=== PATIENT | male | born 1985 | race African-American/Black ===

== ENCOUNTER 2021-09-23 22:37 | Emergency (ER) | payer MEDICAID ==
[~2021-09-23] VITALS: Ht 177.8 cm; Wt 89.4 kg
[2021-09-23 23:07] VITALS: BP 129/83
--- NOTE | 2021-09-23 23:15 | NUR ---
patient to [facility] ambulatory
--- NOTE | 2021-09-24 01:25 | NUR ---
PT TAKEN TO XRAY
--- NOTE | 2021-09-24 01:38 | NUR ---
PT AMBULATED TO BED 1
[2021-09-24] MEDS ORDERED: SULFAMETH/TRIMETH DS 800/160MG 1 TAB PO ONE (01:55)
[2021-09-24] MEDS ORDERED: SULF-58 PO (02:07)
[2021-09-24] MEDS ORDERED: SULF-59 PO (02:07)
[2021-09-24 02:12] VITALS: BP 132/72
--- NOTE | 2021-09-24 02:15 | NUR ---
PATIENT DC HOME FEELING WELL VITALS SIGN IN NORMAL LIMITS ALL DC INSTRUTION GAVE AND EXPLAINED//DiCaprio RN
== END 2021-09-24 02:15 | disposition home or self-care (01) ==
LOC: MED 22:37
DX: L02.511 Cutaneous abscess of right hand (principal); Z79.899 Other long term (current) drug therapy; Z88.8 Allergy status to other drugs, medicaments and biological substances
CPT/HCPCS: 73140; 99283